=== PATIENT | female | born 1960 | race Caucasian/White ===

== ENCOUNTER 2016-06-01 17:56 | Emergency (ER) | payer BC, OTHER ==
[~2016-06-01] VITALS: Ht 162.6 cm; Wt 42.6 kg
--- NOTE | ~2016-06-01 | EKG ---
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
[~2016-06-01 17:56] MED LIST: ALENDRONATE SOD70 MG PO; BENTYL 10 MG CA10 M1 PO; CLONAZEPAM1 MG PO; ESCITALOPRA5 MG/5 ML PO; FOLIC ACID1 MG PO; LANSOPRAZOLE30 MG PO; LEVOTHYROXINE 0.1 MG PO; METHOTREXATE 22.5 MG PO; PERCOCET 5-3251 EACH PO; PROBIOTIC1 EAC1 PO; REGLAN 10 MG TA10 MG PO; STOOL SOFTENER100 M1 PO; TRAMADOL 50 MG50 MG PO; VENTOLIN HFA 1818 GM INH; ZYPREXA20 MG PO; ZYPREXA5 MG PO
[2016-06-01 18:45] LABS: ABSOLUTE NEUTROPHILS 4.5 thou/uL (1.4-8.2); BASOPHILS 1.1 % (0.0-2.0); EOSINOPHILS 5.5 % (0.0-3.0); HEMATOCRIT 33.8 % (37.0-47.0); HEMOGLOBIN 11.6 gm/dL (12.0-15.0); LYMPHOCYTES 36.6 % (24.0-44.0); MCH 34.4 pg (26.0-34.0); MCHC 34.4 g/dL (28.0-37.0); MCV 100.1 fL (80.0-100.0); MONOCYTES 4.9 % (1.0-8.0); PLATELET COUNT 316 thou/uL (150-400); POLYS 51.9 % (36.0-66.0); RBC 3.38 mil/uL (4.20-5.00); RDW 14.9 % (10.5-14.5); WBC 8.6 thou/uL (4.0-11.0)
[2016-06-01 18:49] LABS: MANUAL DIFF NO
[2016-06-01 18:56] LABS: CALCIUM 8.3 mg/dL (8.5-10.1); CREATININE 0.6 mg/dL (0.6-1.3); POTASSIUM 4.2 mmol/L (3.5-5.1)
[2016-06-01 19:00] LABS: ALBUMIN 2.9 g/dL (3.4-5.0); TOTAL BILIRUBIN 0.3 mg/dL (<0.1-1.0); TOTAL PROTEIN 5.5 g/dL (6.4-8.2)
[2016-06-01 20:34] LABS: URINE BILIRUBIN NEGATIVE (Negative); URINE BLOOD NEGATIVE (Negative); URINE COLOR YELLOW; URINE GLUCOSE-RANDOM* NEGATIVE (Negative); URINE KETONES NEGATIVE (Negative); URINE LEUKOCYTES-REFLEX NEGATIVE (Negative); URINE PROTEIN (DIPSTICK) NEGATIVE (Negative); URINE SPECIFIC GRAVITY <= 1.005 (1.003-1.035); URINE UROBILINOGEN 0.2 E.U./dl (0.2-1.0)
[2016-06-01] MEDS ORDERED: SENOKOT-S1 TA1 PO (20:47)
[2016-06-01] MEDS ORDERED: ZOFRAN ODT4 MG PO (20:47)
== END 2016-06-01 21:02 | disposition home or self-care (01) ==
LOC: ER 17:56
PROVIDERS: Emergency Medicine
DX: K59.00 Constipation, unspecified (principal); R11.2 Nausea with vomiting, unspecified; F31.9 Bipolar disorder, unspecified; F41.9 Anxiety disorder, unspecified; Z90.49 Acquired absence of other specified parts of digestive tract; Z90.710 Acquired absence of both cervix and uterus; K21.9 Gastro-esophageal reflux disease without esophagitis; M06.9 Rheumatoid arthritis, unspecified; E03.9 Hypothyroidism, unspecified; Z88.5 Allergy status to narcotic agent; Z88.2 Allergy status to sulfonamides; F15.10 Other stimulant abuse, uncomplicated